=== PATIENT | female | born 1955 | race Caucasian/White ===

== ENCOUNTER → 2018-02-05 | Emergency (ER) | payer OTHER ==
[~2018-02-05] VITALS: Ht 152.4 cm; Wt 83.9 kg
[~2018-02-05] MED LIST: LAMICTAL200 MG
== END | disposition home or self-care (01) ==
LOC: ER 16:37
DX: S01.01XA Laceration without foreign body of scalp, initial encounter (principal); W45.8XXA Other foreign body or object entering through skin, initial encounter; Y93.89 Activity, other specified; Y92.89 Other specified places as the place of occurrence of the external cause; Y99.8 Other external cause status